=== PATIENT | female | born 1950 | race Caucasian/White ===

== ENCOUNTER 2023-08-29 10:37 | Emergency (ER) | payer BC, SELFPAY ==
[2023-08-29 10:47] VITALS: BP 175/87
[2023-08-29 11:16] VITALS: BMI 40.6
[2023-08-29 11:19] VITALS: BP 168/69
--- NOTE | 2023-08-29 11:20 | ED.GENMED ---
History of Present Illness
General
Chief Complaint: Fever
Source: patient
Exam Limitations: none
Time Seen by Provider: 08/29/23 11:09
Travel History
Have you had any contact with someone who has COVID-19?: No
Do you have any symptoms of coronavirus? Fever > 100 degrees, chills, cough, shortness of breath, sore throat, loss of taste or smell, muscle aches, or headache?: No
History of Present Illness
History of Present Illness:
See MDM
Past History
Past History
ED Past Medical History: Cancer (Breast), HTN and Hypercholesterolemia
ED Past Surgical History: Other (lumpectomy)
Social History
Tobacco: Non-smoker
Alcohol: None
Phy Exam
Physical Exam
Physical Exam:
See MDM
Course
Orders/Labs/Results
Orders:
Orders
08/29/23 11:16
0.9% Sodium Chloride 1000 ml [Nss] 1,000 ml IV BOLUS
08/29/23 11:18
Acetaminophen [Tylenol] 1,000 mg PO NOW STA
08/29/23 11:19
CR Chest - 2 Views Urgent
Comment:
Reason For Exam: SOB, fever, Cough
08/29/23 11:21
Comprehensive Metabolic Panel Urgent
NT-proBNP Urgent
Troponin I Urgent
Urinalysis Reflex To Culture Urgent
Date Specimen was Collected: 08/29/23
Time Specimen was Collected: 11:20
Urine Microscopic Reflex Cult Urgent
Blood Culture Q30M
SARA Source: Blood/Venous
Specimen Description:
Blood Culture Q30M
SARA Source: Blood/Venous
Specimen Description:
Urine Culture Urgent
SARA Source: U
Specimen Description:
Date Specimen was Collected: 08/29/23
Time Specimen was Collected: 11:20
08/29/23 11:22
COVID-19 Antigen Urgent
Source: Nasal Swab
Complete Blood Count/With Diff Urgent
Lactic Acid Q4H
Comment: CANCEL 2nd LACTIC ACID IF 1st LACTIC ACID IS LESS THAN 2
Influenza A+B Rapid Molecular Urgent
SARA Source: Nasal Swab
Specimen Description:
08/29/23 13:37
0.9% Sodium Chloride 1000 ml [Nss] 1,000 ml IV BOLUS
08/29/23 14:20
Fluconazole [Diflucan] 150 mg PO NOW STA
Abnormal Lab Results
08/29/23 08/29/23
11: 11:22
WBC 13.4 H 10^3/uL
(4.8-10.8)
Abs Immat Gran (auto) 0.1 H 10^3/uL
(0-0.05)
Absolute Neuts (auto) 11.8 H 10^3/uL
(1.4-6.5)
Absolute Lymphs (auto) 0.7 L 10^3/uL
(1.2-3.4)
Absolute Monos (auto) 0.9 H 10^3/uL
(0.1-0.6)
Neutrophils % 87.5 H %
(42.2-75.2)
Lymphocytes % 5.3 L %
(20.5-51.1)
Sodium 132 L mmol/L
(135-145)
Glucose 149 H mg/dl
(70-99)
Total Bilirubin 1.8 H mg/dl
(0.2-1.3)
Urine Ketones Trace A
(Negative)
Urine Bilirubin 1+ A
(Negative)
Leukocyte Esterase Rfl 1+ A
(Negative)
Urine Bacteria (Reflex) Few A
(Negative)
08/29/23 11:22
08/29/23 11:21
Vital Signs
Initial and Last Documented VS:
Initial Vital Signs
Temp Pulse Resp BP Pulse Ox
99.9 F 84 20 175/87 95
08/29/23 10:47 08/29/23 10:47 08/29/23 10:47 08/29/23 10:47 08/29/23 10:47
Last Documented Vital Signs
Temp Pulse Resp BP Pulse Ox
99.9 F 80 20 136/54 92
08/29/23 10:47 08/29/23 12:00 08/29/23 10:47 08/29/23 13:04 08/29/23 13:05
MDM/Problems Addressed
Differential Diagnosis Includes:
HPI and MDM Narrative:
73-year-old female presenting with fatigue, weakness and fevers. This is associate with increased urinary frequency and burning. She is unsure if this is related to her recent diagnosis of pneumonia. She was diagnosed at urgent care a few weeks
back and finished a course of amoxicillin. Patient states he has a history of breast cancer and currently in remission
Given her symptoms, will obtain urinalysis and chest x-ray. Will obtain COVID and flu test
Physical exam
General: Weak and fatigued
HEENT: protecting airway. Dry mucous membranes
Neck: appears supple
CV: No evidence of cyanosis
Resp: No accessory muscle use. No wheezing
Abd: Non-distended
Extremities: No deformities
Neuro: alert
Psych: Normal affect
Skin: Warm
Problems Addressed including Acute and Chronic Conditions affecting care:
1. Fever and fatigue
Acuity: acute
Prognosis: stable
Details: Will look for source of fever with chest x-ray, viral testing and urinalysis. Given her NSAID allergy, will avoid Toradol. Patient given Tylenol
2. Dehydration
Acuity: acute
Prognosis: stable
Details: Patient given IV fluids
Updates
After IV fluids, patient feeling better. Chest x-ray clear. Urine negative for infection but she complains of burning. Patient stating that her vaginal area is mildly erythematous. We discussed likely fungal infection from recent antibiotic use.
Will give dose of Diflucan. The patient feels comfortable going home
Differential Diagnosis (but not limited to): Pneumonia, viral syndrome, UTI
Testing considered: CT abdomen/pelvis but no significant tenderness noted
Drug therapy (if applicable): OTC meds, please see d/c instruction regarding Rx drugs
Amount and/or Complexity of Data Reviewed
Clinical info obtained from: Patient
External data reviewed: N/A
Labs I independently reviewed (but not limited to): Mild leukocytosis
Radiology: X-ray independently reviewed: Chest x-ray clear
Pulse Ox: not hypoxic
EKG independently reviewed: N/A
Electronics Recycler: N/A
Critical Care: N/A
Risk of Complication:
Social Determinants of health: Good social support
Discussed with other providers: N/A
Escalation of Care includes Admit/Obs: After being observed in the Emergency Department, pt stable for discharge.
Occasional wrong word or 'sound a like' substitutions may have occurred due to the inherent limitations of voice recognition software. Read the chart carefully and recognize, using context, where substitutions have occurred.
*Critical Care Note
Total Time (30-74mins, 75-104mins- exclusive of procedures): Not Applicable
ED Attending Note
-
Portions of this chart may have been created with voice recognition software.� Occasional wrong word or��sound alike� substitutions may have occurred due to the inherent limitations of voice recognition software.
Discharge Plan
Departure
Patient Disposition: Home (Routine Discharge)
Date of Disposition: 08/29/23
Time of Disposition: 14:25
Patient with high blood pressure during this ER visit?: Yes
Discharge Problem:
Flu-like symptoms, Acute dehydration
Instructions: Dehydration, Adult ED
Referrals:
Krishna Coker DO [Family Provider] -
Activity Restrictions/Additional Instructions:
Please return for any worsening symptoms.
You may return at any time if you have further concerns.
Please follow up with your doctor at the first available appointment, preferably this week.
Thank you for choosing [facility].
Interventions
Interventions:
*Risk Screen - Suicide Last Done: 08/29/23 11:16
*General Assessment Last Done: 08/29/23 11:16
*Neglect/Abuse Screening Last Done: 08/29/23 11:16
ED- Fall Risk Assessment Last Done: 08/29/23 11:16
*ED COVID-19 Vaccine History Last Done: 08/29/23 11:16
ED- Neurological Assessment Last Done: 08/29/23 11:16
ED-Skin Assessment Last Done: 08/29/23 11:16
Discharge Date and Time
Print Language: BELARUSIAN
[2023-08-29] MEDS: TYLENOL 1000 MG PO (11:41)
[2023-08-29] MEDS: NSS 1000 IV ×2 (11:43→13:40)
[2023-08-29 12:01] LABS: % Basophils 0.2 % (0-2); % Eosinophils 0.3 % (0-6); % Immature Granulocytes 0.4 % (0-0.5); % Lymphocytes 5.3 % (20.5-51.1); % Monocytes 6.3 % (1.7-9.3); % Neutrophils 87.5 % (42.2-75.2); Absolute Immature Granulocytes 0.1 10^3/uL (0-0.05); Absolute Lymphocytes 0.7 10^3/uL (1.2-3.4); Absolute Monocytes 0.9 10^3/uL (0.1-0.6); Absolute Neutrophils 11.8 10^3/uL (1.4-6.5); Hematocrit 39.6 % (37.0-47.0); Hemoglobin 13.4 g/dL (12.0-16.0); Mean Corp Hgb Conc. 33.8 g/dL (33.0-37.0); Mean Corpuscular Hgb 30.1 pg (27.0-31.0); Mean Platelet Volume 9.7 fL (7.4-10.4); Nucleated Red Blood Cells % 0 %; Platelet Count 233 10^3/uL (130-400); Red Blood Cell Count 4.45 10^6/uL (4.20-5.40); Red Cell Dist. Width 12.7 % (11.5-14.5); White Blood Cell Count 13.4 10^3/uL (4.8-10.8)
[2023-08-29 12:14] LABS: Lactic Acid 1.2 mmol/L (0.7-2.0)
[2023-08-29 12:15] LABS: ALT (SGPT) 16 U/L (0-35); AST (SGOT) 19 U/L (14-36); Albumin 4.2 g/dl (3.5-5.0); Alkaline Phosphatase 98 U/L (38-126); Blood Urea Nitrogen 14 mg/dl (7-17); Calcium 9.6 mg/dl (8.4-10.2); Carbon Dioxide 28 mmol/L (22-30); Chloride 99 mmol/L (98-107); Estimated Creatinine Clearance 83 ml/min; Glucose 149 mg/dl (70-99); Potassium 4.8 mmol/L (3.5-5.1); Sodium 132 mmol/L (135-145); Total Bilirubin 1.8 mg/dl (0.2-1.3); eGFR > 60.00
[2023-08-29 12:27] LABS: NT-proBNP 396 pg/ml; Troponin I < 0.012 ng/ml
[2023-08-29 12:28] LABS: COVID-19 Antigen Negative (Negative)
[2023-08-29 13:04] VITALS: BP 136/54
[2023-08-29 13:14] LABS: Urine Albumin Negative (Neg - Trace); Urine Bilirubin 1+ (Negative); Urine Character Clear (Clear); Urine Color Yellow; Urine Glucose Negative (Negative); Urine Ketone Trace (Negative); Urine Leukocyte 1+ (Negative); Urine Nitrite Negative (Negative); Urine Occult Blood Negative (Negative); Urine Urobilinogen Negative (Neg - 1+)
[2023-08-29 14:00] VITALS: BP 131/57
[2023-08-29 14:01] LABS: Urine Mucus Few; Urine Squamous Cell >30 /LPF (Few)
[2023-08-29 14:03] LABS: Urine Amorphous Seen; Urine Bacteria Few (Negative); Urine Red Blood Cell 0-2 /HPF (0-2)
[2023-08-29] MEDS: DIFLUCAN 150 MG PO (14:38)
== END 2023-08-29 14:43 | disposition home or self-care (01) ==
LOC: EMR 10:37
PROVIDERS: EMERGENCY PHYSICIAN Student in an Organized Health Care Education/Training Program; FAMILY PHYSICIAN Family Medicine
DX: R50.9 Fever, unspecified (principal); E86.0 Dehydration; R53.83 Other fatigue; I10 Essential (primary) hypertension
CPT/HCPCS: 99284; 96360; 96361; 71046; 80053; 81003; 81015; 83605; 83880; 84484; 85025; 87040; 87086; 87502; 87811

== ENCOUNTER 2024-03-14 04:28 | Emergency (ER) | payer SELFPAY ==
[2024-03-14 04:35] VITALS: BP 134/86
[2024-03-14] MEDS: FLEXERIL 10 MG PO (05:08)
[2024-03-14] MEDS: MORPHINE SULFATE 4 MG IV (05:08)
[2024-03-14 05:37] VITALS: BP 124/51
--- NOTE | 2024-03-14 05:51 | ED.GENMED ---
History of Present Illness
General
Chief Complaint: Back Pain
Time Seen by Provider: 03/14/24 04:30
History of Present Illness
History of Present Illness:
73-year-old female with prior history of breast cancer status postmastectomy presenting to the emergency department for left-sided back pain. Patient reports prior to arrival she was at work at a [employer]. She was lifting bread rolls and
twisted her back. She has since been having left-sided back and flank pain. Denies any direct fall or trauma. Denies radiation of pain to her legs or to her abdomen. She has not taken patient for pain prior to arrival. Denies urinary issues.
Denies fever. Denies chest pain or difficulty breathing. Denies nausea or vomiting. Denies additional acute medical complaints
Past History
Past History
ED Past Medical History: Cancer (Breast), HTN and Hypercholesterolemia
ED Past Surgical History: Other (lumpectomy)
Social History
Tobacco: Non-smoker
Alcohol: None
Phy Exam
Physical Exam
Physical Exam:
General: Well-appearing, no clinical signs of dehydration, nontoxic and in no acute distress
HEENT: protecting airway
Neck: appears supple
CV: Normal heart rate, regular rhythm
Resp: No accessory muscle use, no increased work of breathing, lungs clear to auscultation bilaterally
Abd: Soft and non-distended, no tenderness to palpation
Extremities: No deformities, no swelling, no erythema, reproducible tenderness to the left flank extending to the left mid axillary region. No overlying skin changes
Neuro: alert, no focal neurologic deficit
: deferred
Rectal: deferred
Psych: Normal affect
Skin: Intact
Course
Orders/Labs/Results
Orders:
Orders
03/14/24 05:00
CT Abd/pel Without Iv Or Oral Urgent
Comment:
Reason For Exam: L-Flank pain, muscle spasm vs stone
Urinalysis Reflex To Culture Urgent
Cyclobenzaprine HCl [Flexeril] 10 mg PO NOW STA
Morphine Sulfate 4 mg IV NOW STA
03/14/24 05:32
Complete Blood Count/With Diff Urgent
Comprehensive Metabolic Panel Urgent
Lipase Urgent
03/14/24 08:00
Lidocaine [Lidocaine 4% Patch] 1 patch TOPICAL DAILY
Apply Lidocaine patch(s) to:: L-flank
Abnormal Lab Results
03/14/24
05:32
WBC 4.3 L 10^3/uL
(4.8-10.8)
Absolute Lymphs (auto) 0.7 L 10^3/uL
(1.2-3.4)
Lymphocytes % 16.1 L %
(20.5-51.1)
Eosinophils % 7.5 H %
(0-6)
BUN 28 H mg/dl
(7-17)
Glucose 123 H mg/dl
(70-99)
Total Bilirubin 1.5 H mg/dl
(0.2-1.3)
03/14/24 05:32
03/14/24 05:32
Vital Signs
Initial and Last Documented VS:
Initial Vital Signs
Temp Pulse Resp BP Pulse Ox
97.6 F 84 18 134/86 95
03/14/24 04:35 03/14/24 04:35 03/14/24 04:35 03/14/24 04:35 03/14/24 04:35
Last Documented Vital Signs
Temp Pulse Resp BP Pulse Ox
97.6 F 84 18 134/86 95
03/14/24 04:35 03/14/24 04:35 03/14/24 04:35 03/14/24 04:35 03/14/24 04:35
MDM/Problems Addressed
MDM/Problems Addressed:
73-year-old female with prior history of breast cancer presenting for left-sided back and flank pain after lifting roles at work. Vital signs on arrival are normal.
On exam patient is in no acute distress, nontoxic. Reproducible tenderness to left flank, extending to the mid axillary region. Patient reports that she is having difficulty getting into position of comfort. Differential considerations at this
time include musculoskeletal strain versus muscle spasm versus possible nephrolithiasis. No midline tenderness to spine. Patient afebrile without systemic or infectious symptoms, without concern for present infection. Plan for laboratory
analysis, CT imaging. Will give lidocaine patch and morphine for pain, and reassess for improvement.
06:20 -patient's labs are unremarkable. CT without evidence of bowel obstruction, renal stone, or additional acute pathology. There is mention of cholelithiasis and gallbladder distention. On my assessment, patient without any right upper
quadrant abdominal pain. Patient denies any association of pain with eating or food, or any issues with her gallbladder in the past. At this time without concern for acute cholecystitis. Continue to suspect muscle spasm. Patient is reporting
symptom improvement after pain medication, however does have some grogginess. Feel that she is stable to go home, however sister will pick her up. Will prescribe lidocaine patch and extra strength Tylenol. Advised outpatient follow-up with her
doctor. Return precautions discussed and patient verbalized understanding.
*Critical Care Note
Total Time (30-74mins, 75-104mins- exclusive of procedures): Not Applicable
ED Attending Note
-
Portions of this chart may have been created with voice recognition software.� Occasional wrong word or��sound alike� substitutions may have occurred due to the inherent limitations of voice recognition software.
Discharge Plan
Departure
Referrals:
Juwan Coker DO [Family Provider] -
Interventions
Interventions:
*General Assessment Last Done: 03/14/24 04:36
ED- Fall Risk Assessment Last Done: 03/14/24 04:38
*ED COVID-19 Vaccine History Last Done: 03/14/24 06:05
ED-Musculoskeletal Assessment Last Done: 03/14/24 05:01
Discharge Date and Time
Print Language: LATVIAN
[2024-03-14 05:52] LABS: % Basophils 0.9 % (0-2); % Eosinophils 7.5 % (0-6); % Immature Granulocytes 0.5 % (0-0.5); % Lymphocytes 16.1 % (20.5-51.1); % Monocytes 9.3 % (1.7-9.3); % Neutrophils 65.7 % (42.2-75.2); Absolute Eosinophils 0.3 10^3/uL (0-0.7); Absolute Lymphocytes 0.7 10^3/uL (1.2-3.4); Absolute Monocytes 0.4 10^3/uL (0.1-0.6); Absolute Neutrophils 2.8 10^3/uL (1.4-6.5); Hematocrit 37.1 % (37.0-47.0); Hemoglobin 12.6 g/dL (12.0-16.0); Mean Corpuscular Hgb 29.9 pg (27.0-31.0); Mean Corpuscular Volume 87.9 fL (81.0-99.0); Mean Platelet Volume 9.8 fL (7.4-10.4); Nucleated Red Blood Cells % 0 %; Platelet Count 203 10^3/uL (130-400); Red Blood Cell Count 4.22 10^6/uL (4.20-5.40); Red Cell Dist. Width 13.2 % (11.5-14.5); White Blood Cell Count 4.3 10^3/uL (4.8-10.8)
[2024-03-14 06:03] LABS: ALT (SGPT) 18 U/L (0-35); AST (SGOT) 27 U/L (14-36); Albumin 4.5 g/dl (3.5-5.0); Alkaline Phosphatase 75 U/L (38-126); Blood Urea Nitrogen 28 mg/dl (7-17); Calcium 9.9 mg/dl (8.4-10.2); Carbon Dioxide 24 mmol/L (22-30); Chloride 104 mmol/L (98-107); Estimated Creatinine Clearance 72 ml/min; Glucose 123 mg/dl (70-99); Lipase 127 U/L (23-300); Potassium 4.4 mmol/L (3.5-5.1); Sodium 140 mmol/L (135-145); Total Bilirubin 1.5 mg/dl (0.2-1.3); eGFR > 60.00
[2024-03-14 06:04] VITALS: BMI 39.7
[2024-03-14] MEDS: LIDOCAINE 4% PATCH 1 PATCH TOPICAL (06:06)
[2024-03-14 06:09] VITALS: BP 142/60
== END 2024-03-14 09:19 | disposition home or self-care (01) ==
LOC: EMR 04:28
PROVIDERS: EMERGENCY PHYSICIAN Student in an Organized Health Care Education/Training Program; FAMILY PHYSICIAN Family Medicine
DX: M54.6 Pain in thoracic spine (principal); M62.838 Other muscle spasm; I10 Essential (primary) hypertension
CPT/HCPCS: 99284; 96374; 74176; 80053; 83690; 85025